=== PATIENT | female | born 1955 | race Caucasian/White ===

== ENCOUNTER 2017-05-13 07:13 | Day surgery (SDC) | payer MEDICARE ==
--- NOTE | 2017-05-13 07:51 | OR ---
Anesthesia Pre Procedure Eval Date of Service: 05/13/17 Pre Procedure Evaluation: Last Vital Signs Temp 37.4 C 05/13/17 07:26 Pulse 96 05/13/17 07:26 Resp 16 05/13/17 07:26 BP 109/78 05/13/17 07:26 Pulse Ox 99 05/13/17 07:26 Anesthesia Pre Procedure Evaluation DATE: 05/13/2017 TIME: 8:45 AM INDICATIONS: Lumbar disc bulge, low back and left radicular pain. PAST MEDICAL HISTORY: Ms. Sosa has had a history of low back pain with occasional left radicular pain/radiculopathy. She is otherwise good health, exercising daily until recently. She has had previous epidural injections, the most recent being 2 years ago. She has had good relief up until recently where she is unable to exercise, the pain has become constant and it is interfering with her activities of daily living. History of GERD: No History of smoking:No History of sleep apnea:No EXAM: Heart swallowing S2 regular; lungs clear bilaterally ASSESSMENT OF MEDICAL STATUS: Appropriate candidate for lumbar epidural injection PLANNED PROCEDURE: Lumbar steroid epidural injection. Home Medications: HOME MEDICATIONS Cyclobenzaprine HCl [Flexeril] 10 mg PO HS 04/30/14 [Last Taken Unknown] Magnesium 250 mg PO BID 04/30/14 [Last Taken Unknown] Omeprazole [Prilosec] 40 mg PO BID 04/30/14 [Last Taken Unknown] clonazePAM [Klonopin] 1 mg PO BID PRN 04/30/14 [Last Taken Unknown] metroNIDAZOLE [Metrogel 0.75%] 1 appl TP DAILY 04/30/14 [Last Taken Unknown] Bisacodyl [Dulcolax] 10 mg PO BID 05/12/17 [Last Taken Unknown] Calcium Carbonate [Rrmd-[id number]-316] 500 mg PO TID 05/12/17 [Last Taken Unknown] Clonidine HCl [Catapres] 0.2 mg PO DAILY 05/12/17 [Last Taken Unknown] Cyanocobalamin (Vitamin B-12) [Vitamin B-12] 1,000 mcg PO DAILY 05/12/17 [Last Taken Unknown] Ergocalciferol (Vitamin D2) [Vitamin D2] 50,000 unit PO Q7D 05/12/17 [Last Taken Unknown] Etanercept [Enbrel] 50 mg SQ Q7D 05/12/17 [Last Taken Unknown] Hydroxychloroquine Sulfate [Plaquenil] 400 mg PO DAILY 05/12/17 [Last Taken Unknown] Lactobac/Bifidobac/Glob Pr Con [Ultra Carmen Plus Capsule] 1 each PO DAILY [Last Taken Unknown] Montelukast Sodium [Singulair] 10 mg PO DAILY 05/12/17 [Last Taken Unknown] [place]-3 Fatty Acids/Fish Oil [Fish Oil 1,000 mg Capsule] 1 each PO BID 05/12/17 [Last Taken Unknown] Polyethylene Glycol 3350 [Miralax] 17 gm PO DAILY 05/12/17 [Last Taken Unknown] Vits96/Iron Fum/Folic [ S] 1 tab PO DAILY 05/12/17 [Last Taken Unknown] Sennosides [Senokot] 8.6 mg PO DAILY 05/12/17 [Last Taken Unknown] Sennosides [Senokot] 17.2 mg PO HS 05/12/17 [Last Taken Unknown] Zolpidem Tartrate [Ambien] 10 mg PO HS PRN 05/12/17 [Last Taken Unknown] oxyCODONE HCL/ACETAMINOPHEN [Percocet 10-325 mg Tablet] 1 each PO DAILY [Last Taken Unknown]
[2017-05-13] MEDS ORDERED: IOPAMIDOL 20 ML VIAL IJ ONE (08:05)
[2017-05-13] MEDS ORDERED: DEXAMETHASONE SODIUM PHOSPHATE 10 MG/ML VIAL IJ ONE (08:06)
[2017-05-13] MEDS ORDERED: LIDOCAINE HCL/PF 5 ML VIAL IJ ONE (08:06)
--- NOTE | 2017-05-13 08:21 | OR ---
Anesthesia Procedure Note - Anesthesia Procedure Note Date of Service: 05/13/17 Narrative: Vital Signs - Last Taken Temp 37.4 C 05/13/17 07:26 Pulse 87 05/13/17 08:11 Resp 16 05/13/17 08:11 BP 118/64 05/13/17 08:11 Pulse Ox 100 05/13/17 08:11 O2 Oxygen Delivery Method Room Air 05/13/17 08:17 ANESTHESIA PROCEDURE NOTE Date of Procedure: 05/13/2017 Time of procedure: 804. Performed by: Adam Paul CRNA, BACKPACKERS MANAGER, MSN Slip Maker: Mel Arenas RN. Preprocedure diagnosis: Disc bulge, low back and left radicular pain. Post procedure diagnosis: Same. Procedure: Epidural Steroid Injection L4 5 left. Indications: Low back and left radicular pain. Findings: See below. Details of the procedure: After the MRI report and films were reviewed, the patient was interviewed where risks and the procedure were explained. The patient was then brought to OR 3 and was placed in the prone position. The back was prepped with DuraPrep and draped in a sterile fashion. The lumbar area was identified under fluoroscopy and the L4 5 left space was localized with 1% lidocaine solution. The epidural space was identified using loss of resistance technique using a #20-gauge Touhy needle. 1 mL of Isovue was injected while the C-arm was positioned in the lateral orientation. The C-arm was then readjusted to an AP view and Isovue 200 1 milliliters was injected demonstrating a spread at the affected area. Dexamethasone 10mg and lidocaine 1 % 5 mL was injected, stylette was replaced and the epidural needle removed. A Band-Aid was then applied to the injection site, patient was placed in a supine position for 5 minutes then returned to ASU with good relief of pain, from a 5/ 10 to 0/10. EBL: None. Energy: 11.8 Seconds, 1.70 mGy Fluids: N/A. Specimen: N/A. Post procedure condition: The patient tolerated the procedure well. No complications were noted. Thank you for this consultation. Adam Paul CRNA, MSN, BACKPACKERS MANAGER
[2017-05-13 08:48] VITALS: BP 128/76
== END 2017-05-13 07:14 | disposition home or self-care (01) ==
LOC: AMB 07:13
PROVIDERS: ATTEND Nurse Practitioner Critical Care Medicine
PROC: 3E0R3BZ Introduction of Anesthetic Agent into Spinal Canal, Percutaneous Approach (ICD-10-PCS; principal; 2017-05-13)
PROC: 3E0R33Z Introduction of Anti-inflammatory into Spinal Canal, Percutaneous Approach (ICD-10-PCS; 2017-05-13)
PROC: B01BZZZ Fluoroscopy of Spinal Cord (ICD-10-PCS; 2017-05-13)
DX: M51.16 Intervertebral disc disorders with radiculopathy, lumbar region (principal); M54.5 Low back pain; M06.9 Rheumatoid arthritis, unspecified; E55.9 Vitamin D deficiency, unspecified; Z87.891 Personal history of nicotine dependence; Z68.25 Body mass index [BMI] 25.0-25.9, adult